=== PATIENT | male | born 1965 | race Caucasian/White ===

== ENCOUNTER 2022-10-22 02:10 | Emergency (ER) | payer SELFPAY ==
[~2022-10-22] VITALS: Ht 172.7 cm; Wt 72.6 kg
[2022-10-22 03:06] VITALS: BP 149/60
--- NOTE | 2022-10-22 03:06 | NUR ---
[id number] [place] [facility] "FOR USING DRUGS" DENIES ANY SOB, CP, MEDICAL COMPLAINTS. PT AWAKE AND RESPONSIVE; BUT NOT RESPONSING TO QUESTIONS. TOLERATING R/A WELL WITH NO RESP DISTRESS. SAFETY MEASURES IN PLACE.
[2022-10-22] MEDS ORDERED: LOPERAMIDE HCL (2 MG CAP) 2 MG CAPSULE PO ONE (09:30)
[2022-10-22] MEDS ORDERED: LOPE2CAP40 PO (09:32)
[2022-10-22] MEDS ORDERED: LOPERAMIDE HCL (2 MG CAP) 2 MG CAPSULE ONE (09:54)
--- NOTE | 2022-10-22 10:16 | NUR ---
pt seen and evaluated by dr law. refused all lab works. medicated as ordered. was provided w. meal and shoes. d/c in stable condition.
== END 2022-10-22 10:19 | disposition home or self-care (01) ==
LOC: ER 02:12
DX: R41.82 Altered mental status, unspecified (principal)